=== PATIENT | female | born 1955 | race Caucasian/White ===

== ENCOUNTER 2016-04-17 07:31 | Emergency (ER) | payer BC ==
[2016-04-17 07:49] VITALS: BP 146/52
--- NOTE | 2016-04-17 09:15 | UC ---
Eliezer Whatley SooYoung, scribed for [facility] MD on 04/17/16 at 0815 . Eye Complaint HPI - HPI Summary HPI Summary: NOTE: A 60 y/o F concerned about eye discomfort and L hip pain. Vital signs stable, afebrile, pulse ox 99. 5 out of 10 pain. Visual acuity 20/25 L, 20/20 R , with glasses. Daily alcohol ingestion, former smoker for 17 years. Pos PHMx: high cholesterol, heart murmur, tubal ligation. Note is made that pt is using her daughter's Gentamicin opth solution. NURSE'S NOTE: pt has 2 complaints: 1. red, itchy, burning eyes with drainage since sunday04/14/16, grandson dx'sed with pink eye recently. 2. c/o of L lower leg pain - lateral aspect for the past 2-3 months. Pt states constant L hip pain which causes her to walk with an altered gait. In the area where pt points to pain is some spider veins [ End ] ROOM NOTE: A 60 y/o F presents to [facility] with red eyes. The L eye erythema onset three days ago. The R eye erythema began the next day. Associated sx: crusting. Denies cough. Her grandson was dx with pink eye before 04/10/2016. Secondary complaint of L outside calf pain onset past few months. She states having chronic bilat hip pain, L worse than R, and is unsure if the calf pain is related. Aggravating factors: movement, bearing weight. Describes the pain as throbbing. - History of Current Complaint Chief Complaint: UCEye Stated Complaint: EYE ISSUE LEG PAIN Time Seen by Provider: 04/17/16 07:51 Hx Obtained From: Patient Onset/Duration: Lasting Days, Still Present Timing: Constant Severity Initially: Moderate Severity Currently: Moderate Pain Intensity: 5 Pain Scale Used: 0-10 Numeric Location of Injury: Conjunctiva - erythematous - Allergies/Home Medications Allergies/Adverse Reactions: Allergies Allergy/AdvReac Type Severity Reaction Status Date / Time No Known Allergies Allergy Verified 04/17/16 07:49 Home Medications: Home Medications Cholesterol Med 1 tab PO BEDTIME 04/17/16 [History] Coenzyme Q10 (Ubidecarenone) [Co-Enzyme Q-10] 30 mg PO DAILY 04/17/16 [History Confirmed 04/17/16] Gentamicin 0.3% OPHTH.SOLN* 1 drop BOTH EYES Q4H 04/17/16 [History Confirmed 06/02] [place]-3 Fatty Acids [Fish Oil] 1,000 mg PO DAILY 04/17/16 [History Confirmed 06/02] PMH/Surg Hx/FS Hx/Imm Hx Previously Healthy: Yes Endocrine History Of: Denies: Diabetes Cardiovascular History Of: Reports: Cardiac Disorders - murmur Denies: Hypertension, Pacemaker/ICD, Deep Vein Thrombosis GI/ History Of: Denies: Renal Disease - Surgical History Surgical History: Yes Surgery Procedure, Year, and Place: TUBAL LIGATION. TONSILS - Family History Known Family History: Positive: Cardiac Disease - FATHER/GRANDMOTHER - Social History Occupation: Employed Full-time Lives: With Family Alcohol Use: Daily Substance Use Type: None Smoking Status (MU): Former Smoker Amount Used/How Often: 1-2.5 ppd Length of Time of Smoking/Using Tobacco: 30 + yrs When Did the Patient Quit Smoking/Using Tobacco: 1999 Review of Systems Eyes: Eye Redness - BILAT, with crusting Musculoskeletal: Arthralgia - HIP PAIN L MORE THAN R, Calf Tenderness - LLE PAIN AT OUTSIDE CALF All Other Systems Reviewed And Are Negative: Yes Physical Exam Triage Information Reviewed: Yes Appearance: Well-Appearing, No Pain Distress, Well-Nourished Vital Signs: Initial Vital Signs Temp 97.8 F 04/17/16 07:41 Pulse 87 04/17/16 07:41 Resp 16 04/17/16 07:41 BP 146/52 04/17/16 07:41 Pulse Ox 99 04/17/16 07:41 Vital Signs Reviewed: Yes Eyes: Positive: Conjunctiva Inflamed - BILAT ENT: Positive: Hearing grossly normal, Pharynx normal, TMs normal. Negative: Muffled/hoarse voice Neck: Positive: Supple, No Lymphadenopathy Respiratory: Positive: Chest non-tender, Lungs clear, Normal breath sounds Cardiovascular: Positive: RRR, Murmur:Sys:Grade _?_/ - / SYS INJECTION MURMUR, Other: - NEG CAROTID BRUITS Abdomen Description: Positive: Nontender, No Organomegaly, Soft Bowel Sounds: Positive: Present Musculoskeletal: Positive: Strength Intact, No Edema, Other: - ALMONTE; BOTH CALVES MEASURE 15.5"; NEG ESPINO'S SIGN; NO TENDERNESS AT L CALF WITH PALPATION; DISCOMFORT AT LATERAL COMPARTMENT OF LLE Neurological: Positive: Alert Psychological: Positive: Age Appropriate Behavior Skin: Negative: rashes Eye Complaint Course/Dx - Course Course Of Treatment: MDM: Pt's examination is not consistent with DVT. Discussed with pt that she probably has an over-use injury of muscles just lateral to her tibia in her LLE. I also told her that there is no edema or pain in her calf, and she should call her PCP for further evaluation of her complaint , which may include US. I did discuss with pt need for evaluation for her chronic L hip pain with her PCP. Pt also has obvious conjunctivitis. It's unclear to me if it's related to her taking Gentamicin. I will change her to Arithromyocin. - Differential Dx/Diagnosis Provider Diagnoses: 1. MUSCLE STRAIN IN LLE; 2. BILATERAL CONJUNCTIVITIS; 3. L HIP PAIN POSSIBLE ARTHRITIS OR HIP BURSITIS. Discharge - Discharge Plan Condition: Stable Disposition: HOME Prescriptions: Erythromycin (Ophth) [Ilotycin] 5 mg OPHTHALMIC SEE INSTRUCTIONS #1 oin MDD 4 TIMES A DAY Patient Education Materials: Hip Bursitis (ED), Arthritis (ED), Conjunctivitis (ED) Referrals: Shaheed Phelps PAPER CONSERVATOR [Primary Care Provider] - Additional Instructions: WE DISCUSSED: WARM, MOIST HEAT TO AREA IN MORNING. USE ICE ON LEG BEFORE BED. Use medication every 2-3 hours for 2 days; then 3-4 times a day for 5 days. Follow up, for hip discomfort. 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 The documentation as recorded by the Eliezer mcmahan SooYoung accurately reflects the service I personally performed and the decisions made by me, Henry Monson MD.
== END 2016-04-17 09:18 | disposition home or self-care (01) ==
LOC: UCEAST 07:31
DX: S86.912A Strain of unspecified muscle(s) and tendon(s) at lower leg level, left leg, initial encounter (principal); H10.9 Unspecified conjunctivitis; M25.552 Pain in left hip; Z87.891 Personal history of nicotine dependence; E78.00 Pure hypercholesterolemia, unspecified; X58.XXXA Exposure to other specified factors, initial encounter; Y92.9 Unspecified place or not applicable
CPT/HCPCS: 99213; G0463

== ENCOUNTER 2016-06-22 06:04 | Inpatient (IN) | payer BC ==
--- NOTE | 2016-06-19 13:49 | HP ---
HISTORY AND PHYSICAL: DATE OF ADMISSION/SURGERY: 06/22/16 PROCEDURE: Left total hip arthroplasty. CHIEF COMPLAINT: Left hip pain. HISTORY OF PRESENT ILLNESS: Ms. Vines is a 60-year-old female with complaints of left hip pain. She has failed conservative management and has elected to proceed with a left total arthroplasty, which is scheduled for with Dr. Arce. PAST MEDICAL HISTORY: 1. Hypercholesterolemia. 2. History of heart murmur. PAST SURGICAL HISTORY: 1. Tonsillectomy. 2. Tubal ligation. CURRENT MEDICATIONS: 1. Vitamin D. 2. Aspirin. 3. Fish oil. 4. Pravastatin. 5. Lortab. ALLERGIES: No known drug allergies. FAMILY HISTORY: Diabetes, lymphoma, and heart disease. SOCIAL HISTORY: She is a 60-year-old female. She lives with her spouse. She is a worker at [employer]. She smoked for approximately 18 years, but quit 17 years ago. She denies use of drugs. She uses occasional alcohol. REVIEW OF SYSTEMS: A complete 14-point review of systems was reviewed with the patient. All was negative or noncontributory. PHYSICAL EXAMINATION GENERAL: She is well developed, well nourished, in no acute distress. VITAL SIGNS: She stands 5 feet 3 inches tall, weighs 175 pounds. Her blood pressure is 142/89. Her heart rate is 88. HEENT: She is normocephalic, atraumatic. NECK: Supple. No palpable lymph nodes. Trachea is midline. PULMONARY: Lungs are clear to auscultation bilaterally. CARDIO: Regular rate and rhythm. Strong S1 and S2. No peripheral edema. ABDOMEN: Soft, nontender, nondistended. MUSCULOSKELETAL: Left lower extremity, the skin is intact. She walks with an antalgic type gait favoring her left leg. She has decreased range of motion with internal and external rotation of her left hip. A 2+ dorsalis pedis pulses bilaterally. Her lower extremity muscle group strengths are intact at 5/ 5. She has intact sensation. NEUROLOGICAL: She is and oriented x3. Cranial nerves II through XII are intact. ASSESSMENT AND PLAN: Ms. Vines is a 60-year-old female with complaints of left hip pain secondary to osteoarthritis. She has failed conservative management and has elected to proceed with a left total hip arthroplasty, which is scheduled on 06/22/[address] Arce discussed the risks and benefits of the surgery at today's visit and all of her questions were answered. Coumadin, Colace, and Percocet were sent to her pharmacy today for postoperative pain control and DVT prophylaxis. She will follow up with Dr. Arce 10 to 14 days after the surgery. MANA TUCKER [id number]/[facility] #: [id number] MTDDorene
[~2016-06-22 06:04] MED LIST: Buffered Lidocaine 1% SYRIN* 3 ML/SYR SYRINGE INTRADERM ONE; Famotidine IV* 10 MG/ML 2 ML (20 mg) IV ONE
[2016-06-22] MEDS ORDERED: Morphine INJ* 2 MG/ML 1 ML SYRINGE IV PRN (06:05)
[2016-06-22] MEDS ORDERED: PROCHLORPERAZINE INJ 5 MG/ML 2 ML VIAL IV PRN ×2 (06:05→09:12)
[2016-06-22] MEDS ORDERED: oxyCODONE/Acetamin 5/325 MG* TAB PO PRN (06:05)
[2016-06-22] MEDS ORDERED: fentaNYL* 50 MCG/ML 2 ML VIAL (100 MCG VIAL) IV PRN (06:05)
[2016-06-22] MEDS ORDERED: ceFAZolin 2 GM PREMIX(*) 2 GM/50 ML BAG IVPB ONE (06:11)
[2016-06-22] MEDS ORDERED: Famotidine IV* 10 MG/ML 2 ML (20 mg) ONE (06:11)
[2016-06-22] MEDS ORDERED: Midazolam* 1 MG/ML 10 ML VIAL (10 MG) ONE (07:40)
[2016-06-22] MEDS ORDERED: KETAMINE HCL* 50 MG/ML 10 ML VIAL ONE (07:40)
[2016-06-22] MEDS ORDERED: fentaNYL* 50 MCG/ML 2 ML VIAL (100 MCG VIAL) ONE (07:40)
[2016-06-22] MEDS ORDERED: Morphine PF AMP (0.5MG/ML)* 5 MG/10 ML AMP ONE (07:44)
[2016-06-22] MEDS ORDERED: Hetastarch in NS* 500 ML IV ONE (07:46)
[2016-06-22] MEDS ORDERED: diPHENhydraMINE IV* 50 MG/ML 1 ml VIAL (BENADRYL) IV PRN (09:12)
[2016-06-22] MEDS ORDERED: Nalbuphine* 20 MG/ML 1 ML VIAL IV PRN (09:12)
[2016-06-22] MEDS ORDERED: Ondansetron INJ* 2 MG/ML VIAL IV PRN (09:12)
[2016-06-22] MEDS ORDERED: Naloxone* 0.4 MG/ML 1 ML VIAL IV PRN (09:12)
[2016-06-22] MEDS ORDERED: Bupivacaine 0.5% SDV PF* 30 ML VIAL ONE (09:39)
[2016-06-22] MEDS ORDERED: Scopolamine 1.5 mg* PATCH ONE (09:39)
[2016-06-22] MEDS ORDERED: Dexamethasone IV* 4 MG/ML 1 ML (4 MG) ONE (09:40)
[2016-06-22] MEDS ORDERED: Phenylephrine INJ* 10 MG/ML 1 ML VIAL (10 MG) ONE (09:40)
[2016-06-22] MEDS ORDERED: Propofol* 500 MG/50 ML BTL ONE (09:40)
[2016-06-22] MEDS ORDERED: Ondansetron INJ* 2 MG/ML VIAL ONE (09:40)
[2016-06-22] MEDS ORDERED: Scopolomine PATCH Remove* 1 NOTE MISC PATCH OFF SCH (10:00)
--- NOTE | 2016-06-22 10:22 | RAD ---
Indication: LEFT hip replacement. Comparison: May 01, 2016 radiographs. Technique: RIGHT lateral decubitus crosstable AP view of the lower pelvis and LEFT hip 0955 hours Report: Acetabular component and test fit femoral component/reamer in place. Negative for periprosthetic fracture. IMPRESSION: Intraoperative control film.
[2016-06-22] MEDS ORDERED: Polyethylene Glycol 3350* 17 GM PACKET PO PRN (10:47)
[2016-06-22] MEDS ORDERED: LACTULOSE* 30 ML UDC PO PRN (10:47)
[2016-06-22] MEDS ORDERED: Acetaminophen TAB* 325 MG PO PRN (10:47)
[2016-06-22] MEDS ORDERED: Magnesium Hydroxide LIQ* 30 ML UDC PO PRN (10:47)
[2016-06-22] MEDS ORDERED: Bisacodyl SUPP* 10 MG SUPP PR PRN (10:47)
--- NOTE | 2016-06-22 11:29 | RAD ---
Indication: Left hip arthroplasty. 2 views of left hip demonstrates left hip replacement in satisfactory position. No periprosthetic fracture is noted. IMPRESSION: Left hip replacement in satisfactory position.
--- NOTE | 2016-06-22 11:30 | RAD ---
Indication: Left hip replacement. Single low AP view of the pelvis demonstrates left hip replacement in satisfactory position. Pelvic ring is intact. Degenerative changes of the right hip are noted. IMPRESSION: Bipolar left hip arthroplasty in satisfactory position.
[2016-06-22] MEDS ORDERED: Lidocaine 2% PF* 10 ML AMP ONE (11:32)
[2016-06-22] MEDS ORDERED: EPHEDrine (Pressors)* 50 MG/ML VIAL ONE (11:49)
[2016-06-22] MEDS: ceFAZolin 1 GM in Dextrose (*) 1 GM/50 ML BAG IVPB SCH (16:30)
[2016-06-22] MEDS ORDERED: Warfarin TAB(*) 6 MG PO ONE (17:00)
[2016-06-22] MEDS: Docusate CAP* 100 MG PO SCH (20:44)
[2016-06-22] MEDS: Ketorolac INJ* 30 MG/ML 1 ML VIAL IV PRN (23:30)
[2016-06-22] MEDS: oxyCODONE/Acetamin 5/325 MG* TAB PO PRN (23:30)
[2016-06-23] MEDS ORDERED: Morphine INJ* 2 MG/ML 1 ML SYRINGE IV PRN (00:20)
[2016-06-23] MEDS ORDERED: diPHENhydraMINE IV* 50 MG/ML 1 ml VIAL (BENADRYL) IV PRN (00:20)
[2016-06-23] MEDS ORDERED: oxyCODONE/Acetamin 5/325 MG* TAB PO PRN ×2 (00:20)
[2016-06-23] MEDS ORDERED: oxyCODONE TAB* 5 MG TAB PO PRN (00:20)
[2016-06-23] MEDS ORDERED: Ondansetron TAB* 4 MG PO PRN (00:20)
[2016-06-23] MEDS: ceFAZolin 1 GM in Dextrose (*) 1 GM/50 ML BAG IVPB SCH ×2 (01:08→07:59)
--- NOTE | 2016-06-23 04:06 | OP ---
DATE OF OPERATION: 06/22/16 - ROOM #346 DATE OF : 53 SURGEON: Kacy Arce MD BLUNGER LOADER: MANA Moreno ANESTHESIOLOGIST: Dr. Jeffery. ANESTHESIA: Spinal. PRE-OP DIAGNOSIS: Severe end-stage degenerative osteoarthritis of the left hip joint. POST-OP DIAGNOSIS: Severe end-stage degenerative osteoarthritis of the left hip joint. OPERATIVE PROCEDURE: Left total hip arthroplasty. INDICATIONS: Ms. Vines is a 60-year-old female with years of increasingly severe left hip pain. She failed conservative treatment with antiinflammatories , pain medication, ambulatory assistive devices, and physical therapy. Radiographs confirmed [id number] arthritis. She elected to undergo a left total hip arthroplasty due to continued pain and decreased quality of life. Informed consent was obtained from the patient. She understood the risks of the procedure included but were not limited to bleeding, infection, damage to nearby structures, continued pain, need for further surgery, intraoperative fracture, nerve palsy, hardware failure or loosening, leg length discrepancy, dislocation, stroke, heart attack, blood clot, and . She wished to proceed. HARDWARE USED: This is Ivy uncemented total hip hardware. For the acetabulum, a 54E Tritanium cluster hole shell with 125-mm, 6.5 cancellous bone screw. For the liner, a Tritanium X3 10-degree polyethylene insert 36C. For the femoral stem, an Accolade TMZF size 3 with a 132-degree neck. For the head , a Biolox delta 36 +0 femoral head. COMPLICATIONS: None. EBL: 200 cc. SPECIMEN: Femoral head and acetabular bone reamings sent to Pathology. INTRAOPERATIVE FINDINGS: Intraoperatively, the patient was noted to have severe end-stage arthritis with complete loss of cartilage along the femoral head and acetabulum. Significant osteophyte formation along the posterior and inferior rim of the acetabulum. DESCRIPTION OF PROCEDURE: Ms. Vines was identified in the preanesthesia unit. Her left lower extremity was marked as the correct operative side. Informed consent was signed and placed in the chart. The patient was taken to the operating room and placed under spinal anesthesia. A Burns catheter was placed. The patient was placed in the right lateral decubitus position on the peg board. All bony prominences were well padded. Left lower extremity was prepped and draped in the usual sterile fashion. Preop time-out was made to correctly identify the patient's side and site. Appropriate perioperative antibiotics were given within 1 hour of incision. A 14-cm posterior hip incision was made with a 10 blade and carried down to the lateral fascial layer. A new 10 blade was used to make an incision in the lateral fascia in line with the skin incision. Charnley retractor was placed. The piriformis and conjoint tendons were identified and elevated off the posterolateral femur using electrocautery. These were tagged with two #5 Ethibonds. Next, electrocautery was used to make a standard posterolateral capsular flap. This was also tagged with two #5 Ethibonds. The hip was carefully dislocated. Lesser troch to center of the femoral head measured 55 mm. The oscillating saw was used to make the appropriate femoral neck cut. Femoral head was sent to Pathology. The femur was carefully retracted anteriorly. After appropriate placement of retractor, the acetabulum was easily visualized. Long-handle knife was used to remove any remaining labrum from the acetabular rim. Significant amount of osteophyte formation was noted. The acetabulum was sequentially reamed up to a size 53. A bleeding bone bed was obtained. A 53 trial had good fit. Final implant chosen was a Tritanium 54 cluster hole shell. This was impacted into the acetabulum without difficulty. There was satisfactory abduction angle, anteversion, and good stability. A 125-mm screw was placed in the superoposterior quadrant for extra stability. A 10-degree Trident X3 polyethylene liner 36E was chosen. This was impacted into the acetabular cup without difficulty. Stability of the liner was checked and rechecked and noted to be stable. Next, attention was turned to preparation of the femur. A canal finder was used to enter the proximal femur. Femoral canal was sequentially broached up to a size 3. Size 3 femoral stem had excellent stability and anteversion. 32 neck trial and a 36 +0 head trial were chosen. Lesser troch to center of the femoral head measured approximately 56 mm. The hip was reduced and taken through range of motion. The hip was stable in all positions. The hip was carefully dislocated. All trials were carefully removed. Final implant chosen was an Accolade TMZF size 3 with a 132-degree neck. This was impacted into the femoral canal without difficulty. The implant was stable. A 36 +0 ceramic Biolox delta head was chosen. This was impacted on to the femoral neck without difficulty. The hip was reduced and taken through range of motion. The hip was stable in all positions. There was good soft tissue tension and appropriate leg lengths. The hip was copiously irrigated with sterile saline. Previously tagged capsular tendons were reapproximated to the posterolateral femur through two trochanteric drill holes. The lateral fascial layer was closed using interrupted #1 Vicryls. The rest of the incision was closed in a layered fashion using 0 and 2-0 Vicryls. Skin was closed using running 3-0 Monocryl and Dermabond. Sterile Adaptic, 4x4's, and paper tape were used to cover the incision. The patient's anesthesia was reversed without difficulty. She was taken to the PACU in stable condition. Intended weightbearing will be weightbearing as tolerated with posterior hip precautions. Intended DVT prophylaxis will be Coumadin with a Lovenox bridge. [id number]/[facility] #: [id number] DOT
[2016-06-23 06:51] LABS: Hematocrit 28 % (35-47); Hemoglobin 9.5 g/dl (12.0-16.0)
[2016-06-23 07:14] LABS: BUN/Creatinine Ratio 22.1 (8-20); Calcium 8.4 mg/dL (8.6-10.3); EGFR African American 113.1 (>60); Potassium 4.1 mmol/L (3.5-5.0)
--- NOTE | 2016-06-23 07:27 | PN ---
Progress Note - Progress Note SOAP: Subjective: Pt. reports pain is controlled. Objective: LLE - thigh soft, dressing c/d/i. distally + df/pf, full sens lt, 2+ dp pulse. Vital Signs: Temp Pulse Resp BP Pulse Ox 97.7 F 52 15 103/50 100 06/23/16 03:16 06/23/16 03:16 06/23/16 03:16 06/23/16 03:18 06/23/16 03:16 Laboratory Results - last 24 hr 06/23/16 06/23/16 06/23/16 06:39 06:39 06:39 Hgb 9.5 L Hct 28 L INR (Anticoag Therapy) 1.23 H Sodium 135 Potassium 4.1 Chloride 104 Carbon Dioxide 28 Anion Gap 3 BUN 15 Creatinine 0.68 Est GFR ( Amer) 113.1 Est GFR (Non-Af Amer) 88.0 BUN/Creatinine Ratio 22.1 H Glucose 119 H Calcium 8.4 L Assessment: 60 yo F POD 1 s/p LTHA Plan: wbat lle with post hip precautions pt/ot 6 mg coumadin tonight with lovenox bridge plan d/c to home tomorrow
[2016-06-23] MEDS: Enoxaparin(*) 30 MG/0.3 ML SYR SUBCUT SCH (07:59)
[2016-06-23] MEDS: Docusate CAP* 100 MG PO SCH ×2 (09:15→20:36)
[2016-06-23] MEDS: oxyCODONE/Acetamin 5/325 MG* TAB PO PRN ×3 (09:24→21:52)
--- NOTE | 2016-06-23 14:07 | PN ---
Progress Note - Progress Note Note: Anesthesia duramorph followup, the pt did well pain franklin, neuro ok, no HAWKINS, VSS, no severe nausea. s/p THR, continue oral meds
[2016-06-23] MEDS ORDERED: Warfarin TAB(*) 6 MG PO SCH (17:00)
[2016-06-23] MEDS: Ketorolac INJ* 30 MG/ML 1 ML VIAL IV PRN (21:47)
[2016-06-24] MEDS: oxyCODONE/Acetamin 5/325 MG* TAB PO PRN (06:00)
[2016-06-24 07:56] LABS: Hematocrit 26 % (35-47)
[2016-06-24] MEDS: Docusate CAP* 100 MG PO SCH (08:32)
[2016-06-24] MEDS: Enoxaparin(*) 30 MG/0.3 ML SYR SUBCUT SCH (08:32)
[2016-06-24] MEDS: Ketorolac INJ* 30 MG/ML 1 ML VIAL IV PRN (08:37)
[2016-06-24 08:45] VITALS: BP 128/53
--- NOTE | 2016-06-24 09:46 | PN ---
Progress Note - Progress Note SOAP: Subjective: Pt is doing well. She is doing well with PT. Her pain is well controlled. Denies CP, SOB, or calf pain. Objective: PE: 60 y/o WDWN F NAD, lying comfortably in bed LLE: incision healing well with no sign of infection, dressing changes, +PF/DF ankle, calf soft nontender, NVI Vital Signs Temp Pulse Resp BP Pulse Ox 98.3 F 75 18 128/53 98 06/24/16 07:44 06/24/16 07:44 06/24/16 08:00 06/24/16 07:44 06/24/16 08:00 Laboratory Results - last 24 hr 06/24/16 06/24/16 07:24 07:24 Hgb 9.0 L Hct 26 L INR (Anticoag Therapy) 1.36 H Assessment: POD 2 s/p left CELSA Plan: DC today to home with VNS Post hip precautions WBAT LLE- cont PT Cont coumadin, colace and percocet F/U 10-14 days
--- NOTE | 2016-06-25 06:07 | DS ---
DISCHARGE SUMMARY: DATE OF ADMISSION: 06/22/16 DATE OF DISCHARGE: 06/24/16 PROVIDER: Kacy Arce MD ADMITTING DIAGNOSIS: Status post left total hip arthroplasty. SECONDARY DIAGNOSES: 1. Hypercholesterolemia. 2. History of heart murmur. CONSULTATIONS: Physical Therapy and Occupational Therapy. HISTORY OF PRESENT ILLNESS: Ms. Vines presents with ongoing left hip pain due to severe osteoarthritis. She failed conservative measures and therefore agreed to undergo a left total hip arthroplasty with Dr. Arce on 06/22/16. HOSPITAL COURSE: The patient was admitted to [facility] on 06/22/16 and underwent a left total hip arthroplasty with no complications. She briefly recovered in the postanesthesia care unit and transferred to the Short-Stay Surgical Unit in stable condition. On postop day 1, the patient's H and H was 9.5 and 28 and INR was 1.23 after 6 mg of Coumadin the night before. The dressing was clean, dry, and intact and neurovascularly intact. They demonstrated dorsiflexion and plantar flexion with good strength. The patient was able to get out of bed with physical therapy. The pain was controlled with oral pain medication on postop day 2. The catheter was also removed on postop day 1 and the patient was able to void without difficulty. On postop day 2, the incision was found to have minimal drainage. No erythema or warmth. The H and H was 9.0 and 26. The INR was 1.36 after 6 mg of Coumadin the night before. The pain was controlled with oral pain medication. The patient was able to ambulate with a rolling walker with physical therapy. The patient's pain was well controlled and is found to be stable for discharge. Throughout the hospital course, the vital signs remained stable and the patient was afebrile. DISCHARGE CONDITION: Stable. DISCHARGE MEDICATIONS: Home medications continue to include: 1. [place]-3 fatty acid 1000 mg capsules 1 by mouth daily. 2. Co-enzyme Q10 30 mg 1 by mouth daily. 3. Pravastatin sodium 40 mg by mouth every night. 4. Aspirin 81 mg daily. The patient was instructed not to take this while on Coumadin. New medications at discharge to include: 1. Colace capsule 100 mg by mouth twice a day. 2. Percocet 5/325 mg 1 to 2 tabs every 4 to 6 hours as needed for pain. 3. Warfarin 2 mg to take as directed by doctor daily x30 days. Discontinued on discharge: 1. Hydrocodone/ibuprofen 1 tab by mouth every 8 hours. DISCHARGE INSTRUCTIONS: The patient's weightbearing as tolerated on left lower extremity. Activity as directed by physical therapy. Lifelong posterior hip precautions. The patient is to keep the dressing dry and intact and may shower postop day 4. VNS to do daily dressing changes. Do not submerge in water such as bath hot tubs or swimming pools. Call office or go to the ER if the patient develops shortness of breath, chest pain, calf pain, tenderness, or fever greater than 101.5 degrees Fahrenheit. The patient will follow up with Dr. Arce in 10 to 14 days for a followup and x-ray. The patient will continue Percocet for pain, Colace for constipation, and Coumadin x1 month for DVT prophylaxis. The patient will take 8 mg of Coumadin on Sunday, 8 mg on Sunday , and to have blood redrawn on Sunday. The patient was instructed to not take ibuprofen or aspirin while on Coumadin. MANA FRY [id number]/[facility] #: [id number] DOT
== END 2016-06-24 11:40 | disposition home health service (06) | DRG 301 ==
LOC: AA 06:04 → SSU 10:48
PROVIDERS: ADMIT Orthopaedic Surgery Adult Reconstructive Orthopaedic Surgery; ATTEND Orthopaedic Surgery Adult Reconstructive Orthopaedic Surgery
PROC: 0SRB04A Replacement of Left Hip Joint with Ceramic on Polyethylene Synthetic Substitute, Uncemented, Open Approach (ICD-10-PCS; principal; 2016-06-22 08:00)
DX: M16.12 Unilateral primary osteoarthritis, left hip (principal); Z87.891 Personal history of nicotine dependence; E78.00 Pure hypercholesterolemia, unspecified; Z98.51 Tubal ligation status; Z82.49 Family history of ischemic heart disease and other diseases of the circulatory system; Z83.3 Family history of diabetes mellitus; Z80.7 Family history of other malignant neoplasms of lymphoid, hematopoietic and related tissues; Z72.89 Other problems related to lifestyle; Z79.82 Long term (current) use of aspirin
CPT/HCPCS: 36415; 72170; 80048; 85014; 85018; 85610; 88304; 88311; 94760; A9270-GY; C1713; C1776; J0690; J1100; J1650; J1885; J2001; J2250; J2405; J2704; J3010

== ENCOUNTER 2017-07-08 07:19 | Emergency (ER) | payer BC ==
[2017-07-08 07:36] VITALS: BP 136/51
--- NOTE | 2017-07-08 08:21 | UC ---
Eye Complaint HPI - HPI Summary HPI Summary: This 61-year-old lady comes to the urgent care this morning after work report on her with complaints of 2 days of bilateral eye redness and itching she also reports purulent discharge and some matting. She states that she does have allergies and some sinus congestion and sneezing. - History of Current Complaint Chief Complaint: UCEye Stated Complaint: EYE COMPLAINT Time Seen by Provider: 07/08/17 08:11 Hx Obtained From: Patient ?: No Onset/Duration: Sudden Onset, Lasting Days - 2, Still Present Timing: Constant Severity Initially: Mild Severity Currently: Mild Pain Intensity: 1 Pain Scale Used: 0-10 Numeric Location of Injury: Conjunctiva - Bilateral Aggravating Factor(s): Nothing Alleviating Factor(s): Nothing Associated Signs And Symptoms: Positive: Drainage (Purulent) - Allergies/Home Medications Allergies/Adverse Reactions: Allergies Allergy/AdvReac Type Severity Reaction Status Date / Time No Known Allergies Allergy Verified 07/08/17 07:36 PMH/Surg Hx/FS Hx/Imm Hx Previously Healthy: Yes - Surgical History Surgical History: Yes Surgery Procedure, Year, and Place: TUBAL LIGATION. TONSILS - Family History Known Family History: Positive: Cardiac Disease - FATHER/GRANDMOTHER - Social History Occupation: Employed Full-time Lives: With Family Alcohol Use: Occasionally Alcohol Amount: FEW DRINKS/MONTH Substance Use Type: None Smoking Status (MU): Former Smoker Type: Cigarettes Amount Used/How Often: 1-2.5 ppd Length of Time of Smoking/Using Tobacco: 30 + yrs Have You Smoked in the Last Year: No When Did the Patient Quit Smoking/Using Tobacco: 1999 Household Exposure Type: Cigarettes - Immunization History Most Recent Influenza Vaccination: FALL 2015 Most Recent Tetanus Shot: 2011 Most Recent Pneumonia Vaccination: NEVER Review of Systems Constitutional: Negative Skin: Negative Eyes: Drainage - Bilateral, Eye Redness - Bilateral ENT: Nasal Discharge Respiratory: Negative Cardiovascular: Negative Gastrointestinal: Negative Genitourinary: Negative Motor: Negative Neurovascular: Negative Musculoskeletal: Negative Neurological: Negative Psychological: Negative Is Patient Immunocompromised?: No All Other Systems Reviewed And Are Negative: Yes Physical Exam Triage Information Reviewed: Yes Appearance: Well-Appearing, No Pain Distress, Well-Nourished Vital Signs: Initial Vital Signs Temp 97.6 F 07/08/17 07:32 Pulse 64 07/08/17 07:32 Resp 18 07/08/17 07:32 BP 136/51 07/08/17 07:32 Pulse Ox 98 07/08/17 07:32 Vital Signs Reviewed: Yes Eye Exam: Normal Eyes: Positive: Conjunctiva Inflamed, Discharge ENT Exam: Normal ENT: Positive: Normal ENT inspection, Hearing grossly normal, Pharynx normal, Pharyngeal erythema, Nasal congestion, TMs normal, Uvula midline. Negative: Trismus, Muffled voice, Hoarse voice, Dental tenderness, Sinus tenderness Dental Exam: Normal Neck exam: Normal Neck: Positive: Supple, Nontender, No Lymphadenopathy Respiratory Exam: Normal Respiratory: Positive: Chest non-tender, Lungs clear, Normal breath sounds, No respiratory distress, No accessory muscle use Cardiovascular Exam: Normal Cardiovascular: Positive: RRR, No Murmur, Pulses Normal, Brisk Capillary Refill Musculoskeletal Exam: Normal Musculoskeletal: Positive: Strength Intact, ROM Intact, No Edema Neurological Exam: Normal Neurological: Positive: Alert, Muscle Tone Normal Psychological Exam: Normal Psychological: Positive: Normal Response To Family, Age Appropriate Behavior Skin Exam: Normal Skin: Positive: rashes Eye Complaint Course/Dx - Course Course Of Treatment: Zyrtec for sinus congestion and environment allergies erythromycin eye ointment 3 times a day for up to 7 days as for conjunctivitis follow with PCP when necessary - Differential Dx/Diagnosis Provider Diagnoses: Allergic rhinosinusitis, conjunctivitis Discharge - Sign-Out/Discharge Documenting (check all that apply): Discharge - Discharge Plan Condition: Stable Disposition: HOME Prescriptions: Erythromycin OPHTH.OINT* [Ilotycin OPHTH.OINT*] 1 applic BOTH EYES TID 7 Days # 0.5 inch Patient Education Materials: Cetirizine (By mouth), Allergic Rhinitis (ED), Conjunctivitis (ED) Referrals: Shaheed Phelps NP [Primary Care Provider] - If Needed - Billing Disposition and Condition Condition: STABLE Disposition: HOME
== END 2017-07-08 08:30 | disposition home or self-care (01) ==
LOC: UCEAST 07:19
DX: J30.9 Allergic rhinitis, unspecified (principal); H10.33 Unspecified acute conjunctivitis, bilateral; Z87.891 Personal history of nicotine dependence
CPT/HCPCS: 99212; G0463

== ENCOUNTER 2018-08-22 07:18 | Emergency (ER) | payer BC ==
--- NOTE | 2018-08-22 07:24 | UC ---
Hand/Wrist HPI - HPI Summary HPI Summary: CHIEF COMPLAINT and HPI: This is a 63-year-old female complaining of right hand pain and redness. This condition began 2 weeks ago and has gotten worse. One week ago. The patient assured the area of abscess and then began treating it with soaks and antibiotic cream. However, last night her condition worsened. The hand became swollen and increasingly red. She noticed a red streak going up her arm to her elbow. The pain was significant over her right palm and worse with palpation. Pain is described as 6/10. Patient is right handed. Location: right hand Type: worse with palpation, acute. Intensity: 6/10 Radiation: elbow following read line Course: 2 weeks VITAL SIGNS & SaO2 REVIEWED. Within normal limits unless noted. Blood pressure is 149/65. Patient is not on antihypertensive medications. NURSES NOTE REVIEWED. "R hand redness, has a healed cut from 3 weeks ago, a week ago started throbbing. Wound opened last weekend." - History Of Current Complaint Stated Complaint: RT HAND SWELLING Time Seen by Provider: 08/22/18 07:19 - Allergies/Home Medications Allergies/Adverse Reactions: Allergies Allergy/AdvReac Type Severity Reaction Status Date / Time No Known Allergies Allergy Verified 08/22/18 07:31 Home Medications: Home Medications Aspirin 81 mg CHEW TAB* [Aspirin Low Dose TAB*] 81 mg PO DAILY 08/22/18 [ History Confirmed 08/22/18] PMH/Surg Hx/FS Hx/Imm Hx - Additional Past Medical History Additional PMH: PAST MEDICAL HISTORY- CHRONIC and RECURRENT HEALTH PROBLEM LIST REVIEWED. Information relevant to present complaint: osteoarthritis; left hip replacement 06/2016 VISIT HISTORY REVIEWED: hip pain. MEDICATIONS & ALLERGIES REVIEWED: non-contributory; no anti-hypertensive medication. HYPERTENSION STATUS: FAMILY HISTORY: Positive for: cancer. Patient denies family history of: diabetes. SOCIAL HISTORY: smoker, lives , and works as a . - Surgical History Surgical History: Yes Surgery Procedure, Year, and Place: TUBAL LIGATION. TONSILS - Family History Known Family History: Positive: Cardiac Disease - FATHER/GRANDMOTHER - Social History Alcohol Use: Occasionally Alcohol Amount: FEW DRINKS/MONTH Substance Use Type: None Smoking Status (MU): Former Smoker Type: Cigarettes Amount Used/How Often: 1-2.5 ppd Length of Time of Smoking/Using Tobacco: 30 + yrs Have You Smoked in the Last Year: No When Did the Patient Quit Smoking/Using Tobacco: 1999 Household Exposure Type: Cigarettes - Immunization History Most Recent Influenza Vaccination: FALL 2015 Most Recent Tetanus Shot: 2011 Most Recent Pneumonia Vaccination: NEVER Review of Systems All Other Systems Reviewed And Are Negative: Yes Constitutional: Positive: Negative Respiratory: Positive: Negative, Shortness Of Breath Cardiovascular: Positive: Negative, Chest Pain Gastrointestinal: Positive: Negative, Abdominal Pain Musculoskeletal: Positive: Decreased ROM - RIGHT HAND, Edema, Other: - PAIN AND REDNESS RIGHT HAND Is Patient Immunocompromised?: No - has left hip replacement Physical Exam - Summary Physical Exam Summary: Appearance: The patient is well-appearing, is in no pain or distress, and is well-nourished. Eyes: Conjunctiva are clear. Pupils are equal and reactive to light and accommodation. Extra ocular muscle movement is intact. ENT: The hearing is grossly normal, the pharynx is normal, and the TMs are normal. There is no muffled or hoarse voice. No stridor. Neck: The neck is supple and there is no lymphadenopathy. Respiratory: The chest is non-tender to palpation and without crepitus. The lungs are clear, there are normal breath sounds, and there is no respiratory distress. No wheezes, rales or rhonchi. Cardiovascular: Heart sounds reveal a regular rate and rhythm. There are no clicks, rubs or murmurs. There are no carotid bruits or thrills. Circulation is grossly intact. Abdomen: The abdomen is soft and nontender. There is no organomegaly. Bowel sounds are present and within normal limits. No point tenderness at McBurneys point. No CVA tenderness. Musculoskeletal: Strength is intact. The patient moves all extremities. Examination of the right upper extremity shows a moderately swollen right hand with erythema over the palm. There is a 2.5 cm abscess over the mid palm proximal to the fourth finger. There is surrounding erythema. There is significant pain with palpation of the flexor tendon. The pain follows the course of the erythematous streak that extends up the volar aspect of the right arm to the elbow crease. Neurological: The patient is alert. Motor and sensory are examination grossly intact. Speech is normal. Psychological: The patient displays age appropriate behavior, and is conversant. GCS=15. Skin: Negative for rashes. Triage Information Reviewed: Yes Vital Signs Reviewed: Yes Hand/Wrist Course/Dx - Course Course Of Treatment: MEDICAL DECISION MAKING and PLAN: This is a 63-year-old female complaining of right hand pain and redness. This condition began 2 weeks ago and has gotten worse. One week ago. The patient assured the area of abscess and then began treating it with soaks and antibiotic cream. However, last night her condition worsened. The hand became swollen and increasingly red. She noticed a red streak going up her arm to her elbow. The pain was significant over her right palm and worse with palpation. Pain is described as 6/10. Patient is right handed. Review of systems is unremarkable except for the chief complaint. Physical exam is within normal limits except for the right upper extremity. She does have a systolic murmur. Examination of the right upper extremity shows a moderately swollen right hand with erythema over the palm. There is a 2.5 cm abscess over the mid palm proximal to the fourth finger. There is surrounding erythema. There is significant pain with palpation of the flexor tendon. The pain follows the course of the erythematous streak that extends up the volar aspect of the right arm to the elbow crease. The differential is between a simple abscess and cellulitis and infection of the flexor tendon, consistent with flexor tenosynovitis of the right palm. MEDICATIONS REVIEWED. HYPERTENSION STATUS REVIEWED WITH PATIENT IF blood pressure is above 120/80. Patient will follow up with PMD within 4 weeks for elevated BP. - Differential Dx/Diagnosis Differential Diagnosis/HQI/PQRI: Foreign Body, Puncture Wound, Tenosynovitis Provider Diagnosis: Cellulitis, Tenosynovitis of finger and hand Discharge - Sign-Out/Discharge Documenting (check all that apply): Patient Departure All imaging exams completed and their final reports reviewed: No Studies - Discharge Plan Condition: Stable Disposition: TRANS HIGHER LVL OF CARE FAC Referrals: Shaheed Phelps NP [Primary Care Provider] - Additional Instructions: WE DISCUSSED: YOUR DIAGNOSIS IS: INFECTION OF THE RIGHT HAND OTHER INSTRUCTIONS: GO TO ED NOW. Hypertension Discharge Instructions: Your blood pressure reading today was 149/65, indicating HYPERTENSION. Follow- up with your primary care provider within 4 weeks for blood pressure check and appropriate recommendations and treatment, as needed. - Billing Disposition and Condition Condition: STABLE Disposition: Trans Higher Lvl of Care Fac
[2018-08-22 07:31] VITALS: BP 149/65
== END 2018-08-22 08:00 | disposition home health service (06) ==
LOC: UCEAST 07:18
DX: L03.113 Cellulitis of right upper limb (principal); L02.511 Cutaneous abscess of right hand; M65.841 Other synovitis and tenosynovitis, right hand; R03.0 Elevated blood-pressure reading, without diagnosis of hypertension; Z79.82 Long term (current) use of aspirin; Z96.642 Presence of left artificial hip joint; Z87.891 Personal history of nicotine dependence
CPT/HCPCS: 99212; G0463

== ENCOUNTER 2018-08-22 08:27 | Observation (INO) | payer BC ==
[2018-08-22] MEDS ORDERED: ceFAZolin 1 GM ADVAN(*) 1 GM in NS 0.9% 50 ML* 50 ML IVPB ONE (09:02)
[2018-08-22 09:37] LABS: ABS Eosinophils 0.1 10^3/ul (0-0.6); ABS Lymphocytes 1.2 10^3/ul (1.0-4.8); ABS Monocytes 0.7 10^3/ul (0-0.8); ABS Neutrophils 6.4 10^3/ul (1.5-7.7); Eosinophil % 1.7 %; Hematocrit 38 % (35-47); Hemoglobin 13.2 g/dL (12.0-16.0); Lymphocyte % 13.9 %; Mean Corpuscular HGB Conc 35 g/dL (31-36); Mean Corpuscular Hemoglobin 31 pg (27-31); Mean Corpuscular Volume 89 fL (80-97); Platelet Count 201 10^3/uL (150-450); Red Blood Count 4.26 10^6 /uL (3.70-4.87); Red Cell Distribution Width 13 % (10.5-15); White Blood Count 8.4 10^3/uL (3.5-10.8)
[2018-08-22 09:52] LABS: Albumin 4.5 g/dL (3.2-5.2); Albumin/Globulin Ratio 1.4 (1-3); BUN/Creatinine Ratio 32.1 (8-20); C Reactive Protein 22.52 mg/L (<8.01); Calcium 9.5 mg/dL (8.6-10.3); EGFR African American 82.6 (>60); EGFR Non-African American 68.3 (>60); Globulin 3.2 g/dL (2-4); Potassium 3.7 mmol/L (3.5-5.0); Total Bilirubin 0.7 mg/dL (0.2-1.0); Total Protein 7.7 g/dL (6.4-8.9)
--- NOTE | 2018-08-22 10:28 | ED ---
Skin Complaint - HPI Summary HPI Summary: Patient is a 63-year-old female who presents to the ED with right palm abscess from a cut sustained 2 weeks ago. She states despite antibiotic ointment and cleansing the wound thoroughly, the area continued to grow in size and developed into an abscess. She was able to open this abscess several days ago. She noticed yesterday that she had swelling to the dorsum of the hand as well as slight swelling to the ring finger. Slightly flexed posture of the right ring finger and slight tenderness to the flexor tendon sheath on deep palpation. Pain on passive extension of the finger. She was sent here by [facility] for further evaluation of possible cellulitis versus abscess versus tenosynovitis. She denies any fevers, sweats, chills. She states she is otherwise feeling well. She denies any forearm pain or pain to the elbow. She denies any pain to the fingertips. - History of Current Complaint Chief Complaint: EDExtremityUpper Time Seen by Provider: 08/22/18 08:35 Stated Complaint: INFECTION IN ARM PER PT Hx Obtained From: Patient Onset/Duration: Started Hours Ago Skin Exposure Onset/Duration: Hours Ago Timing: Constant Onset Severity: Moderate Current Severity: Moderate Pain Intensity: 7 Pain Scale Used: 0-10 Numeric Skin Location: Discrete - right hand Aggravating Symptom(s): Nothing Alleviating Symptom(s): Nothing Associated Signs & Symptoms: Negative, Red Streaks - just distal to the R elbow Related History: Trauma, Foreign Body - possible - Additional Pertinent History Primary Care Physician: RACHID - Allergy/Home Medications Allergies/Adverse Reactions: Allergies Allergy/AdvReac Type Severity Reaction Status Date / Time No Known Allergies Allergy Verified 08/22/18 08:34 PMH/Surg Hx/FS Hx/Imm Hx Previously Healthy: Yes Endocrine/Hematology History: Denies: Hx Diabetes Cardiovascular History: Denies: Hx Deep Vein Thrombosis, Hx Hypertension, Hx Pacemaker/ICD Respiratory History: Reports: Other Respiratory Problems/Disorders - Hx OF SMOKING 2PPD 15 YRS, NONE SINCE 1999, STATES SHE GETS WHEZZY WITH EXE History: Denies: Hx Renal Disease Musculoskeletal History: Reports: Hx Arthritis - SHOULDERS,HIPS, LOW BACK Sensory History: Reports: Hx Contacts or Glasses - GLASSES Denies: Hx Hearing Aid Opthamlomology History: Reports: Hx Contacts or Glasses - GLASSES Psychiatric History: Denies: Hx Panic Disorder - Surgical History Surgery Procedure, Year, and Place: TUBAL LIGATION. TONSILS Hx Anesthesia Reactions: No - Immunization History Date of Tetanus Vaccine: unknown Hx Pertussis Vaccination: No Immunizations Up to Date: Yes Infectious Disease History: No Infectious Disease History: Denies: Traveled Outside the [place] in Last 30 Days - Family History Known Family History: Positive: Cardiac Disease - FATHER/GRANDMOTHER - Social History Occupation: Employed Full-time Lives: With Family Alcohol Use: Occasionally Alcohol Amount: FEW DRINKS/MONTH Hx Substance Use: No Substance Use Type: Reports: None Hx Tobacco Use: Yes Smoking Status (MU): Former Smoker Type: Cigarettes Amount Used/How Often: 1-2.5 ppd Length of Time of Smoking/Using Tobacco: 30 + yrs Have You Smoked in the Last Year: No Review of Systems Negative: Fever, Chills, Fatigue, Skin Diaphoresis Negative: Palpitations, Chest Pain Negative: Shortness Of Breath, Cough Genitourinary: Negative Positive: no symptoms reported, see HPI Negative: Arthralgia, Myalgia Positive: Other - right dorsum hand erythema and swelling/ abscess to the palmar area with pustule measuring 1.5cm in width Psychological: Normal All Other Systems Reviewed And Are Negative: Yes Physical Exam Triage Information Reviewed: Yes Vital Signs On Initial Exam: Initial Vitals Temp Pulse Resp BP Pulse Ox 98.8 F 84 16 169/86 98 08/22/18 08:29 08/22/18 08:29 08/22/18 08:29 08/22/18 08:29 08/22/18 08:29 Vital Signs Reviewed: Yes Appearance: Positive: Well-Appearing, Well-Nourished Skin: Positive: Warm, Skin Color Reflects Adequate Perfusion, Other - erythema and swelling - pustule to the palmar surface Head/Face: Positive: Normal Head/Face Inspection Eyes: Positive: EOMI, SOPHIE, Conjunctiva Clear Neck: Positive: No Lymphadenopathy Respiratory/Lung Sounds: Positive: Clear to Auscultation, Breath Sounds Present Cardiovascular: Positive: RRR, Pulses are Symmetrical in both Upper and Lower Extremities Neurological: Positive: Speech Normal Psychiatric: Positive: Normal, Affect/Mood Appropriate AVPU Assessment: Alert Diagnostics - Vital Signs Vital Signs Temp Pulse Resp BP Pulse Ox 08/22/18 08:29 98.8 F 84 16 169/86 98 - Laboratory Lab Results: Lab Results 08/22/18 08/22/18 Range/Units 09:22 09:22 WBC 8.4 (3.5-10.8) 10^3/uL RBC 4.26 (3.70-4.87) 10^6 /uL Hgb 13.2 (12.0-16.0) g/dL Hct 38 (35-47) % MCV 89 (80-97) fL MCH 31 (27-31) pg MCHC 35 (31-36) g/dL RDW 13 (10.5-15) % Plt Count 201 (150-450) 10^3/uL MPV 8.0 (7.4-10.4) fL Neut % (Auto) 75.7 % Lymph % (Auto) 13.9 % [place] % (Auto) 8.3 % Eos % (Auto) 1.7 % Baso % (Auto) 0.4 % Absolute Neuts (auto) 6.4 (1.5-7.7) 10^3/ul Absolute Lymphs (auto) 1.2 (1.0-4.8) 10^3/ul Absolute Monos (auto) 0.7 (0-0.8) 10^3/ul Absolute Eos (auto) 0.1 (0-0.6) 10^3/ul Absolute Basos (auto) 0.0 (0-0.2) 10^3/ul Absolute Nucleated RBC 0.0 10^3/ul Nucleated RBC % 0.0 Sodium 137 (135-145) mmol/L Potassium 3.7 (3.5-5.0) mmol/L Chloride 104 (101-111) mmol/L Carbon Dioxide 24 (22-32) mmol/L Anion Gap 9 (2-11) mmol/L BUN 27 H (6-24) mg/dL Creatinine 0.84 (0.51-0.95) mg/dL Est GFR ( Amer) 82.6 (>60) Est GFR (Non-Af Amer) 68.3 (>60) BUN/Creatinine Ratio 32.1 H (8-20) Glucose 100 (70-100) mg/dL Calcium 9.5 (8.6-10.3) mg/dL Total Bilirubin 0.70 (0.2-1.0) mg/dL AST 17 (13-39) U/L ALT 17 (7-52) U/L Alkaline Phosphatase 54 (34-104) U/L C-Reactive Protein 22.52 H (<8.01) mg/L Total Protein 7.7 (6.4-8.9) g/dL Albumin 4.5 (3.2-5.2) g/dL Globulin 3.2 (2-4) g/dL Albumin/Globulin Ratio 1.4 (1-3) Result Diagrams: 08/22/18 09:22 08/22/18 09:22 Lab Statement: Any lab studies that have been ordered have been reviewed, and results considered in the medical decision making process. Course/Dx - Course Course Of Treatment: Her Patient is a 63-year-old female who presents to the ED with right palm abscess from a cut sustained 2 weeks ago. She states despite antibiotic ointment and cleansing the wound thoroughly, the area continued to grow in size and developed into an abscess. She was able to open this abscess several days ago. She noticed yesterday that she had swelling to the dorsum of the hand as well as slight swelling to the ring finger. Slightly flexed posture of the right ring finger and slight tenderness to the flexor tendon sheath on deep palpation. Pain on passive extension of the finger. She was sent here by [facility] for further evaluation of possible cellulitis versus abscess versus tenosynovitis. She denies any fevers, sweats, chills. She states she is otherwise feeling well. She denies any forearm pain or pain to the elbow. She denies any pain to the fingertips. Patient is given Kefzol and labs obtained. Elevated CRP. Normal WBC. Afebrile. VS stable. - Differential Diagnoses - Skin Complaint Differential Diagnoses: Other - Flexor tenosynovitis, cellulitis, abscess, foreign body - Diagnoses Provider Diagnoses: Tenosynovitis - Physician Notifications Discussed Care Of Patient With: Nikos Jansen - Admit to hospital team - will consult Time Discussed With Above Provider: 11:15 Instructed by Provider To: Admit As Inpatient Discharge - Sign-Out/Discharge Documenting (check all that apply): Patient Departure Patient Received Moderate/Deep Sedation with Procedure: No - Discharge Plan Condition: Good Disposition: ADMITTED TO [facility] Referrals: Shaheed Phelps NP [Primary Care Provider] - - Billing Disposition and Condition Condition: GOOD Disposition: Admitted to [facility]
[2018-08-22] MEDS ORDERED: Ondansetron ODT TAB* 4 MG PO PRN (11:59)
[2018-08-22] MEDS ORDERED: Ondansetron INJ* 2 MG/ML VIAL IV PRN (11:59)
[2018-08-22] MEDS ORDERED: diPHENhydraMINE IV* 50 MG/ML 1 ml VIAL (BENADRYL) IV PRN (11:59)
[2018-08-22] MEDS ORDERED: traMADol TAB* 50 MG PO PRN (11:59)
[2018-08-22] MEDS ORDERED: Morphine INJ* 2 MG/ML 1 ML SYRINGE (TWO MG - NEW SYRINGE VERSION) IV PRN (11:59)
[2018-08-22] MEDS ORDERED: diPHENhydraMINE PO* 25 MG PO PRN (11:59)
[2018-08-22] MEDS ORDERED: Acetaminophen TAB* 325 MG PO PRN ×2 (11:59→21:49)
[2018-08-22] MEDS ORDERED: Lactated Ringers 1000 ML Bag* 1,000 ML IV SCH (12:00)
[2018-08-22] MEDS ORDERED: Lactated Ringers 1000 ML Bag* 1,000 ML IV ONE (12:00)
[2018-08-22 12:17] LABS: Urine Appearance Clear; Urine Bilirubin Negative (Negative); Urine Blood Negative (Negative); Urine Color Straw; Urine Glucose Negative (Negative); Urine Ketones Negative (Negative); Urine Nitrite Negative (Negative); Urine Protein Negative (Negative); Urine Specific Gravity 1.014 (1.010-1.030); Urine Urobilinogen Negative (Negative)
[2018-08-22 12:44] LABS: INR 1.03 (0.82-1.09)
--- NOTE | 2018-08-22 13:02 | HP ---
Amended report to enter cosigning physician. ADMISSION HISTORY AND PHYSICAL: DATE OF ADMISSION: 08/22/18 PRIMARY CARE PROVIDER: April Phelps NP. Faucets Assembler Dr Wright ATTENDING SURGEON: Nikos Jansen MD* (dictated by MANA Addison) CHIEF COMPLAINT: Right hand abscess. HISTORY OF PRESENT ILLNESS: The patient is a right hand dominant 63-year-old female who presents to the emergency room with right palm abscess from a cut sustained 2 weeks ago from a paring knife. She cleansed the wound thoroughly and had been applying antibiotic ointment, though roughly 1 week ago it developed into an abscess. She lanced it with a pin and got purulent material out of it. She also sustained a fall onto gravel without any apparent injury and without any known break in the skin. though she did fall into her hands. She noticed yesterday that she was developing redness and swelling of the hand as well as the ring finger. There is sharp pain with motion of the ring finger as well as palpation of the palm or ring finger, though it is not severe. Pain does not radiate. She states that she has had no fever or chills. Her last meal was at 3:30 a.m. last night, she had crackers at 530 am this morning. She has been drinking water up until 11 a.m. this morning. She has never had a heart attack, stroke, or blood clot. She has had surgery before and tolerated anesthesia well. PAST MEDICAL HISTORY: Significant for heart murmur, for which she follows with Dr. Wright yearly without any known history of cardiac events, CAD, arrhythmias PAST SURGICAL HISTORY: Includes left total hip replacement [address] Arce, tonsillectomy, and tubal ligation. HOME MEDICATIONS: None. DRUG ALLERGIES: None. FAMILY HISTORY: Positive for cardiac disease. SOCIAL HISTORY: Former smoker. No drug use. Occasional alcohol use. Works at [employer]. She is right-handed. She lives at home with her family and is able to take care of herself independently. She rides an exercise bike 30 minutes per day without chest pain. REVIEW OF SYSTEMS: General: No fever or chills. HEENT: No headache or head trauma. Cardiac: Positive for heart murmur without any history of heart attack , she follows with cardiology annually. Respiratory: No cough or shortness of breath. Abdomen: No nausea, vomiting, diarrhea, or abdominal pain. : No dysuria. Musculoskeletal: Right hand swelling and purulent drainage. No pain or injury to other extremities. Neuro: Sensation intact to light touch throughout all extremities including the right hand distal to the abscess area. Hematology: No history of blood clot. PHYSICAL EXAMINATION GENERAL: Well appearing, in no acute distress, alert and oriented x3. VITAL SIGNS: Temperature 97.7, pulse rate 69, respiratory rate 20, oxygen saturation 96% on room air, blood pressure 140/89. HEENT: Head: Normocephalic, atraumatic. Eyes: Extraocular movements intact. RESPIRATORY: Clear to auscultation bilaterally. CARDIAC: S1, S2. Positive systolic murmur. ABDOMEN: Bowel sounds normoactive. No guarding. No rigidity. Nontender. MUSCULOSKELETAL: Left upper extremity and bilateral lower extremities: Skin envelop intact without any erythema. No tenderness to palpation. Able to move extremities well without pain. Right upper extremity: The right hand dorsum and palmar surface are erythematous and edematous. The fourth digit is erythematous and edematous, held slightly in a flexed position though she is able to extend it with mild pain. On the palmar surface over the fourth metacarpal, there is an abscessed area without any drainage. There is obvious purulence under the skin, roughly dime sized. This area is tender to palpation. She is mildly tender along the fourth tendon flexor sheath and the 4th digit. She does have streaking erythema up to the elbow. Range of motion of the remainder of the digits is nonpainful. Wrist range of motion is nonpainful. She does have sensation intact to light touch throughout the right upper extremity. Capillary refill less than 2 seconds distally and radial pulses 2+. ASSESSMENT: Right hand abscess and cellulitis, possibility of foreign body, less likely flexor tenosynovitis as symptoms are fairly mild though consistent with this diagnosis PLAN: The patient will be n.p.o. We will order CBC, BMP, INR, chest x-ray, EKG , and book her for I and D in the OR. Dr. Jansen is aware and agreeable to this plan. She has already had blood cultures. We will keep her on Ancef until the surgery. Per patient history RCRI calculated at 0 points as patient' s cr <2, no insulin use, no history of cerebrovascular disease, chf, CAD, or ischemic heart disease and planned procedure is not high risk. Last echo and EKG were obtained from his discovery guide. MANA SANTIAGO [id number]/[facility] #: [id number] DOT
[2018-08-22] MEDS ORDERED: ceFAZolin 1 GM ADVAN(*) 1 GM in NS 0.9% 50 ML* 50 ML IVPB SCH (17:30)
[2018-08-22] MEDS ORDERED: fentaNYL* 50 MCG/ML 2 ML VIAL (100 MCG VIAL) ONE (20:09)
[2018-08-22] MEDS ORDERED: Midazolam* 1 MG/ML 5 ML VIAL (5 MG) ONE ×2 (20:10→20:50)
[2018-08-22] MEDS ORDERED: Bupivacaine 0.25% SDV PF* 10 ML VIAL INJ ONE (20:43)
--- NOTE | 2018-08-22 20:45 | PN ---
Progress Note - Progress Note Date of Service: 08/22/18 Note: Full history and physical dictated by MANA Addison. She has a right palm abscess with associated cellulitis. I will perform an incision and drainage of the right hand infection in the OR tonight and explore it for any foreign bodies. We will then do warm soapy water soaks and antibiotics.
[2018-08-22] MEDS ORDERED: fentaNYL* 50 MCG/ML 5 ML VIAL (250 MCG VIAL) ONE (21:05)
[2018-08-22] MEDS ORDERED: Lidocaine 2% PF * 5 ML VIAL ONE (21:12)
[2018-08-22] MEDS ORDERED: Propofol* 500 MG/50 ML BTL ONE (21:12)
[2018-08-22] MEDS ORDERED: Ondansetron INJ* 2 MG/ML VIAL ONE (21:17)
[2018-08-22] MEDS ORDERED: Ketorolac INJ* 30 MG/ML 1 ML VIAL ONE (21:17)
[2018-08-22] MEDS ORDERED: Dexamethasone IV* 4 MG/ML 1 ML (4 MG) ONE (21:17)
[2018-08-22] MEDS ORDERED: ceFAZolin 2 GM PREMIX in ORs 2 GM/50 ML BAG IVPB ONE (21:22)
[2018-08-22] MEDS ORDERED: oxyCODONE TAB* 5 MG TAB PO PRN ×3 (21:49→22:58)
[2018-08-22] MEDS ORDERED: Naloxone* 0.4 MG/ML 1 ML VIAL IV PRN (21:49)
[2018-08-22] MEDS ORDERED: DiMENhydriNATE IV* 50 MG/ML VIAL IV PUSH PRN (21:49)
[2018-08-22] MEDS ORDERED: oxyCODONE TAB* 5 MG TAB ONE ×2 (22:00→22:31)
[2018-08-22] MEDS ORDERED: Docusate CAP* 100 MG PO PRN (22:58)
[2018-08-22] MEDS ORDERED: Vancomycin(*) 0 MG in NS 0.9% 250 ML* 250 ML IVPB SCH (23:45)
[2018-08-22] MEDS ORDERED: Vancomycin(*) 1,250 MG in NS 0.9% 250 ML* 250 ML IVPB ONE (23:49)
[2018-08-22] MEDS ORDERED: Vancomycin per Pharmacy* NOTE FOLLOW UP PRN (23:57)
--- NOTE | 2018-08-22 23:57 | OP ---
OPERATIVE REPORT: DATE OF OPERATION: 08/22/18 - Inpatient, room 333-01 DATE OF : 53 SURGEON: Nikos Jansen M.D. LIGHT RAIL TRANSIT OPERATOR: None. ANESTHESIOLOGIST: Dr. Avery. ANESTHESIA: General. PRE-OP DIAGNOSES: Right hand byrd abscess, possible flexor tenosynovitis. POST-OP DIAGNOSIS: Right hand cellulitis with palm abscess. OPERATIVE PROCEDURE: 1. Right hand byrd abscess, incision and drainage. 2. Exploration of right palm wound, but no foreign body was identified. 3. Incision and drainage of right ring finger flexor tendon sheath. INDICATIONS: Kristina is a 63-year-old, started to develop the infection about a week ago. She did have a scratch in the area, a couple weeks ago. She did not think there was any foreign body, but she did have a fall on some rocks. Did have definitely of abscess in the palm. ESTIMATED BLOOD LOSS: 2 mL. COMPLICATIONS: None. FINDINGS: See above and below. DESCRIPTION OF PROCEDURE: The patient was seen in the preoperative holding area. The correct site, side, and procedure were identified. We came back to the operating room. The arm was prepped and draped in the usual fashion. A time-out was performed. The arm was exsanguinated and the tourniquet was inflated to 225 mmHg. I went ahead and made a Easton-type incision going through the central aspect of her abscess. As I went through the abscess, ariella purulence was encountered. Aerobic and anaerobic cultures were taken. The flaps were brought back. The ulnar digital nerve to the ring finger was identified and protected. I went ahead and drained all the purulent material. There was also some murky looking fluid a little bit more distally over the A1 becki. I decided to open up flexor tendon sheath just to make sure there was no infection and then I went ahead and opened that up just proximal to the A1 becki. I irrigated out the flexor tendon sheath. Once I had that looking nice and clean, I did a little Betadine soak, some saline and Betadine for a few minutes. Then, irrigated out the wound copiously. The corners of the flaps were tacked down with some 4-0 nylon suture and wounds were closed very loosely. Soft dressings were applied. Marcaine had been infiltrated. She was taken to the recovery room in stable condition. POSTOPERATIVE PLAN: We will continue the cefazolin while we wait for cultures. It did not look like MRSA. It looked more just like a typical Staph infection. We will also start warm soapy water soaks and again we will follow cultures tomorrow morning and tailor antibiotics appropriately. [id number]/[facility] #: [id number] MTDDorene
[2018-08-23 06:44] LABS: ABS Lymphocytes 0.4 10^3/ul (1.0-4.8); ABS Monocytes 0.1 10^3/ul (0-0.8); Hematocrit 35 % (35-47); Lymphocyte % 5.6 %; Mean Corpuscular HGB Conc 34 g/dL (31-36); Mean Corpuscular Hemoglobin 31 pg (27-31); Mean Corpuscular Volume 89 fL (80-97); Mean Platelet Volume 8.1 fL (7.4-10.4); Platelet Count 168 10^3/uL (150-450); Red Cell Distribution Width 14 % (10.5-15); White Blood Count 6.6 10^3/uL (3.5-10.8)
[2018-08-23 07:08] LABS: BUN/Creatinine Ratio 24.3 (8-20); Calcium 8.5 mg/dL (8.6-10.3); EGFR African American 101.9 (>60); EGFR Non-African American 84.2 (>60); Potassium 4.4 mmol/L (3.5-5.0)
--- NOTE | 2018-08-23 09:43 | PN ---
Subjective Date of Service: 08/23/18 Interval History: Ms. Vines is a 63 yo female, admitted on 08/22/18 with concern for right palm abscess with associated cellulitis and is now s/p I&D in the OR. She reports significant improvement in pain and pressure. Denies fever/chills, CP, SOB, or other concerns. She slept well overnight, tolerating PO. Awaiting ortho evaluation on POD #1. Family History: Unchanged from Admission Social History: Unchanged from Admission Past Medical History: Unchanged from Admission Objective Active Medications: Acetaminophen (Tylenol Tab*) 325 mg PO Q6H PRN PRN Reason: PAIN OR TEMPERATURE Diphenhydramine HCl (Benadryl Iv*) 25 mg IV Q6H PRN PRN Reason: PRURITIS Diphenhydramine HCl (Benadryl Po*) 25 mg PO Q6H PRN PRN Reason: PRURITIS Docusate Sodium (Colace Cap*) 100 mg PO BID PRN PRN Reason: CONSTIPATION Heparin Sodium (Porcine) (Heparin Vial(*)) 5,000 units SUBCUT Q12H AMELIE Lactated Ringer's (Lactated Ringers 1000 Ml Bag*) 1,000 mls @ 100 mls/hr IV PER RATE AMELIE Last Admin: 08/22/18 15:19 Dose: 100 mls/hr Vancomycin HCl 1,250 mg/ (Sodium Chloride) 250 mls @ 166.667 mls/hr IVPB Q12H AMELIE Morphine Sulfate (Morphine Inj (Syringe))*) 2 mg IV Q4H PRN PRN Reason: PAIN - SEVERE Ondansetron HCl (Zofran Inj*) 4 mg IV Q6H PRN PRN Reason: NAUSEA Ondansetron HCl (Zofran Odt Tab*) 4 mg PO Q6H PRN PRN Reason: NAUSEA Oxycodone HCl (Roxycodone Tab*) 5 mg PO Q4H PRN PRN Reason: PAIN - MODERATE Oxycodone HCl (Roxycodone Tab*) 10 mg PO Q4H PRN PRN Reason: PAIN - SEVERE Pharmacy Consult (Vancomycin Per Pharmacy*) 1 note FOLLOW UP . PRN PRN Reason: PER PROTOCOL Pharmacy Profile Note (Vancomycin Trough Check) 1 note FOLLOW UP 1130 ONE Stop: 08/24/18 11:31 Tramadol HCl (Ultram*) 50 mg PO Q6H PRN PRN Reason: PAIN - MODERATE Vital Signs - 8 hr 08/23/18 08/23/18 08/23/18 02:46 04:51 07:41 Temperature 97.8 F 97.6 F 98.5 F Pulse Rate 66 59 62 Respiratory 17 16 18 Rate Blood Pressure 134/61 112/47 111/47 (mmHg) O2 Sat by Pulse 95 92 92 Oximetry 08/23/18 07:54 Temperature Pulse Rate Respiratory 18 Rate Blood Pressure (mmHg) O2 Sat by Pulse Oximetry Oxygen Devices in Use Now: None Appearance: Middle aged female, ambulating in room, pleasant, conversive, NAD Eyes: No Scleral Icterus, PERRLA Ears/Nose/Mouth/Throat: Clear Oropharnyx, Mucous Membranes Moist Neck: NL Appearance and Movements; NL JVP Respiratory: Symmetrical Chest Expansion and Respiratory Effort, Clear to Auscultation Cardiovascular: RRR - systolic murmur Abdominal: NL Sounds; No Tenderness; No Distention Lymphatic: No Cervical Adenopathy, No Auricular Adenopathy Extremities: No Clubbing, Cyanosis, - - right hand with c/d/i jv wrap and dressing, good distal movement of all fingers with brisk cap refill Skin: No Rash or Ulcers Neurological: Alert and Oriented x 3, NL Gait, NL Muscle Strength and Tone Lines/Tubes/Other Access: Clean, Dry and Intact Peripheral IV Nutrition: Taking PO's Result Diagrams: 08/23/18 06:28 08/23/18 06:28 Additional Lab and Data: Lab Results 08/22/18 08/22/18 Range/Units 09:22 09:22 WBC 8.4 (3.5-10.8) 10^3/uL RBC 4.26 (3.70-4.87) 10^6 /uL Hgb 13.2 (12.0-16.0) g/dL Hct 38 (35-47) % MCV 89 (80-97) fL MCH 31 (27-31) pg MCHC 35 (31-36) g/dL RDW 13 (10.5-15) % Plt Count 201 (150-450) 10^3/uL MPV 8.0 (7.4-10.4) fL Neut % (Auto) 75.7 % Lymph % (Auto) 13.9 % [place] % (Auto) 8.3 % Eos % (Auto) 1.7 % Baso % (Auto) 0.4 % Absolute Neuts (auto) 6.4 (1.5-7.7) 10^3/ul Absolute Lymphs (auto) 1.2 (1.0-4.8) 10^3/ul Absolute Monos (auto) 0.7 (0-0.8) 10^3/ul Absolute Eos (auto) 0.1 (0-0.6) 10^3/ul Absolute Basos (auto) 0.0 (0-0.2) 10^3/ul Absolute Nucleated RBC 0.0 10^3/ul Nucleated RBC % 0.0 Sodium 137 (135-145) mmol/L Potassium 3.7 (3.5-5.0) mmol/L Chloride 104 (101-111) mmol/L Carbon Dioxide 24 (22-32) mmol/L Anion Gap 9 (2-11) mmol/L BUN 27 H (6-24) mg/dL Creatinine 0.84 (0.51-0.95) mg/dL Est GFR ( Amer) 82.6 (>60) Est GFR (Non-Af Amer) 68.3 (>60) BUN/Creatinine Ratio 32.1 H (8-20) Glucose 100 (70-100) mg/dL Calcium 9.5 (8.6-10.3) mg/dL Total Bilirubin 0.70 (0.2-1.0) mg/dL AST 17 (13-39) U/L ALT 17 (7-52) U/L Alkaline Phosphatase 54 (34-104) U/L C-Reactive Protein 22.52 H (<8.01) mg/L Total Protein 7.7 (6.4-8.9) g/dL Albumin 4.5 (3.2-5.2) g/dL Globulin 3.2 (2-4) g/dL Albumin/Globulin Ratio 1.4 (1-3) Microbiology and Other Data: Microbiology 08/22/18 09:20 Aerobic Blood Culture - Preliminary Blood Venous No Growth Day 1 Anaerobic Blood Culture - Preliminary No Growth Day 1 08/22/18 09:22 Aerobic Blood Culture - Preliminary Blood Venous No Growth Day 1 Anaerobic Blood Culture - Preliminary No Growth Day 1 08/22/18 21:24 Skin and Soft Tissue MRSA/MSSA (PCR - Final Hand Right Mrsa Positive S.aureus Positive Gram Stain - Final Assess/Plan/Problems-Billing Assessment: Ms. Vines is a 63 yo female with a PMH significant for heart murmur, admitted for I&D for right hand abscess and cellulitis. - Patient Problems (1) Infection of right hand Code(s): L08.9 - LOCAL INFECTION OF THE SKIN AND SUBCUTANEOUS TISSUE, UNSP Comment: POD #1, s/p I&D Positive MRSA wound culture, continue vancomycin at this time POC per orthopedics Continue pain management, PT/OT (2) DVT prophylaxis Code(s): Z29.9 - ENCOUNTER FOR PROPHYLACTIC MEASURES, UNSPECIFIED Comment: Per ortho SQ heparin Status and Disposition: OBV admit. Dispo per orthopedics. Attending: Yovanny Martin
[2018-08-23] MEDS ORDERED: Heparin VIAL(*) 5000 UNITS/ML VIAL (FIVE THOUSAND) SUBCUT SCH (12:00)
[2018-08-23] MEDS ORDERED: Vancomycin(*) 1,250 MG in NS 0.9% 250 ML* 250 ML IVPB SCH (12:00)
--- NOTE | 2018-08-23 16:09 | PN ---
Progress Note - Progress Note Date of Service: 08/23/18 SOAP: Subjective: POD #1 Right hand I&D. Doing well. States that pain is essentially resolved. Denies paresthesias or numbness. Denies f/c Objective: Vitals: Temp Pulse Resp BP Pulse Ox 98.3 F 62 18 113/45 92 08/23/18 11:39 08/23/18 11:39 08/23/18 11:39 08/23/18 11:39 08/23/18 11:39 Gen: A&Ox3, NAD at rest sitting in bed RUE: Incision C/I, mild s/s drainage. No purulent drainage. +f/e at MCP, PIP and DIP joints without pain. N/V intact Labs: Microbiology 08/22/18 21:24 Hand Right Skin and Soft Tissue MRSA/MSSA (PCR - Final Mrsa Positive S.aureus Positive 08/22/18 21:24 Hand Right Gram Stain - Final 08/22/18 21:24 Hand Right Wound Culture - Preliminary Staphylococcus Aureus 08/22/18 21:24 Wound Anaerobic Culture - Preliminary 08/22/18 09:20 Blood Venous Aerobic Blood Culture - Preliminary No Growth Day 1 08/22/18 09:20 Blood Venous Anaerobic Blood Culture - Preliminary No Growth Day 1 08/22/18 09:22 Blood Venous Aerobic Blood Culture - Preliminary No Growth Day 1 08/22/18 09:22 Blood Venous Anaerobic Blood Culture - Preliminary No Growth Day 1 Laboratory Results - last 24 hr 08/23/18 08/23/18 06:28 06:28 WBC 6.6 RBC 3.90 Hgb 12.0 Hct 35 MCV 89 MCH 31 MCHC 34 RDW 14 Plt Count 168 MPV 8.1 Neut % (Auto) 92.2 Lymph % (Auto) 5.6 [place] % (Auto) 1.9 Eos % (Auto) 0.0 Baso % (Auto) 0.3 Absolute Neuts (auto) 6.0 Absolute Lymphs (auto) 0.4 L Absolute Monos (auto) 0.1 Absolute Eos (auto) 0.0 Absolute Basos (auto) 0.0 Absolute Nucleated RBC 0.0 Nucleated RBC % 0.0 Sodium 139 Potassium 4.4 Chloride 108 Carbon Dioxide 25 Anion Gap 6 BUN 17 Creatinine 0.70 Est GFR ( Amer) 101.9 Est GFR (Non-Af Amer) 84.2 BUN/Creatinine Ratio 24.3 H Glucose 156 H Calcium 8.5 L Assessment: POD #1 Right hand I&D Plan: Pain and swelling improved after I&D, IV abx D/C with Bactrim DS BID, warm soapy water soaks twice daily F/u with Dr. Jansen next week
--- NOTE | 2018-08-23 16:17 | DS ---
Orthopedic Discharge Summary - Discharge Summary Date of Admission:08/22/18 Date of Discharge: 08/23/18 Date of Surgery: 08/22/18 Attending Orthopedic Provider: Nikos Jansen MD Pre-operative Diagnosis: Right hand abscess, flexor tenosynovitis Operative Procedure: Right hand irrigation and debridement Condition of Patient: Stable History: DAYANA HUMPHREYS is a 63 year old F with years of increasingly severe right hand pain and swelling. She presented to the ER and was found to have a right hand abscess and flexor tenosynovitis. Hospital Course: DAYANA was admitted to [facility] on 08/22/18. Patient underwent a right hand irrigation and debridement without complication followed by a brief recovery in PACU and transfer to the Short Stay Surgical Unit in stable condition. The patient was found to have MRSA on intraoperative cultures and improved with IV antibiotics. Post-op day 1: patient was alert and in no acute distress. Incision was clean, dry and intact. Operative extremity flexion and extension intact, sensation intact to light touch distally, DP2+. Pain and swelling improved. Patient was deemed to be medically and orthopedically stable for discharge home. Home Medications Medication Instructions Recorded Confirmed Type Aspirin 81 mg CHEW TAB* 81 mg PO DAILY 08/22/18 08/22/18 History Acetaminophen TAB* [Tylenol TAB*] 325 mg PO Q6H PRN tab 08/23/18 Rx Sulfamethox/Trimethoprim DS* 1 tab PO BID #28 tab 08/23/18 Rx [Bactrim DS 800/160 TAB*] traMADol TAB* [Ultram*] 50 mg PO Q6H PRN tab 08/23/18 Rx Instructions: Soak hand in warm, soapy water twice daily. Apply dry dressing with jv bandage after Elevate hand frequently and continue to move fingers often Call with any questions or concerns. Go directly to the ER with any chest pain, shortness of breath, fevers >101.5, calf pain or swelling Follow up with Dr. Jansen next week
[2018-08-23 16:42] VITALS: BP 121/48
[2018-08-24] MEDS ORDERED: Vancomycin Trough Check NOTE FOLLOW UP ONE (11:30)
== END 2018-08-23 17:30 | disposition home or self-care (01) ==
LOC: ED 08:27 → SSU 11:59
PROVIDERS: ADMIT Internal Medicine; ATTEND Internal Medicine
DX: L02.511 Cutaneous abscess of right hand (principal); M65.9 Synovitis and tenosynovitis, unspecified; M65.841 Other synovitis and tenosynovitis, right hand; A49.02 Methicillin resistant Staphylococcus aureus infection, unspecified site; Z79.82 Long term (current) use of aspirin; Z87.891 Personal history of nicotine dependence; R60.0 Localized edema; I25.10 Atherosclerotic heart disease of native coronary artery without angina pectoris; R01.1 Cardiac murmur, unspecified; L08.9 Local infection of the skin and subcutaneous tissue, unspecified; Z96.642 Presence of left artificial hip joint
CPT/HCPCS: 36415; 71046; 80048; 80053; 81003; 85025; 85610; 86140; 87040; 87070; 87073; 87077; 87186; 87205; 87640; 87641; 93005; 96365; 96366; 96367; 99283; A9270-GY; G0378; J0690; J1100; J1644; J1885; J2250; J2405; J2704; J3010; J3370; J3490